=== PATIENT | female | born 1975 | race Caucasian/White ===

== ENCOUNTER 2019-05-06 12:13 | Outpatient (REF) | payer MEDICAID, SELFPAY ==
--- NOTE | 2019-05-06 10:35 | PAPFT_PTH ---
PATIENT: SHANI WILSON LOC: [facility] U#:[id number] AGE/SX: 43/F ROOM: RE05/06/[address]: Fadumo Gaitan : 1975 BED: DIS: 05/06/2019 SPEC #: [id number] RECD: 05/09/19 13:11 STATUS: ANDRES REQ #: [id number] NATALIE: 05/06/19 10:[address]: Fadumo Gaitan DEPT: [facility] Cytology RECD BY: Mellissa Knapp Tissues: 1 - CX/ENDOCX FOR PAP SMEARS Procedures: PAP THIN PREP/[facility] Screening HPV DNA PROBE Comments: [id number]
== END 2019-05-06 12:33 ==
LOC: NCHCN 12:13
PROVIDERS: PCP Family Medicine; Visit Provider Family Medicine
DX: Z12.4 Encounter for screening for malignant neoplasm of cervix (principal); Z11.51 Encounter for screening for human papillomavirus (HPV); Z00.00 Encounter for general adult medical examination without abnormal findings
CPT/HCPCS: 88142; 87624

== ENCOUNTER 2024-04-01 13:24 | Outpatient (REF) | payer SELFPAY ==
--- NOTE | 2024-04-01 08:30 | PAPFT_PTH ---
PATIENT: SHANI WILSON LOC: [facility] U#:[id number] AGE/SX: 48/F ROOM: RE04/01/[address]: Fadumo Gaitan : 1975 BED: DIS: 04/01/2024 SPEC #: [id number] RECD: 04/01/24 17:38 STATUS: ANDRES PABLO #: [id number] NATALIE: 04/01/24 08:[address]: Fadumo Gaitan DEPT: [facility] Cytology RECD BY: Mellissa Knapp Tissues: 1 - CX/ENDOCX FOR PAP SMEARS Procedures: PAP THIN PREP/[facility] Screening Comments: [id number]
== END 2024-04-01 13:25 | disposition home or self-care (01) ==
LOC: NCHCN 13:24
PROVIDERS: PCP Family Medicine; Visit Provider Family Medicine
DX: Z12.4 Encounter for screening for malignant neoplasm of cervix (principal)
CPT/HCPCS: 88142